=== PATIENT | female | born 1980 | race American Indian/Alaskan Native ===

== ENCOUNTER 2016-10-25 10:49 | Outpatient (CLI) | payer OTHER, BC, MEDICAID ==
[2016-10-25 11:12] VITALS: BP 119/68
== END 2016-10-25 11:30 | disposition home or self-care (01) ==
LOC: TRG 10:49
PROVIDERS: ATTEND Obstetrics & Gynecology
DX: O47.03 False labor before 37 completed weeks of gestation, third trimester (principal); Z3A.30 30 weeks gestation of pregnancy
CPT/HCPCS: 59025

== ENCOUNTER 2019-06-05 15:56 | Outpatient (CLI) | payer BC, MEDICAID ==
[2019-06-05 16:38] VITALS: BP 109/67
[2019-06-05] MEDS ORDERED: LACTATED RINGERS 1,000 ML IV SCH (18:00)
[2019-06-05 18:34] LABS: Bilirubin,Urine NEG (Negative); Blood,Urine NEG (Negative); Color,Urine Straw (Yellow); Mucus,Urine FEW /HPF; Protein,Urine <15 mg/dL mg/dL (Negative); Urobilinogen,Urine < 2.0 mg/dL (<2.0)
== END 2019-06-05 20:00 | disposition home or self-care (01) ==
LOC: TRG 15:56
PROVIDERS: ATTEND Obstetrics & Gynecology
DX: O26.853 Spotting complicating pregnancy, third trimester (principal); O09.523 Supervision of elderly multigravida, third trimester; O47.03 False labor before 37 completed weeks of gestation, third trimester; Z3A.36 36 weeks gestation of pregnancy
CPT/HCPCS: 59025; 81001; 96360; 96361; J7120